=== PATIENT | male | born 1965 | race Caucasian/White ===

== ENCOUNTER → 2018-01-15 | Outpatient (CLI) | payer SELFPAY ==
[2018-01-15 13:03] LABS: BASO # 0.1 10^3/uL (0.0-0.2); BASO % 0.5 % (0.0-1.0); EOS # 0.2 10^3/uL (0.0-0.50); EOS % 1.3 % (0.0-3.0); HEMATOCRIT 52.8 % (42.0-52.0); HEMOGLOBIN 18.2 g/dl (13.5-17.5); IMMATURE GRANULOCYTE % 0.4 % (0-3.0); LYMPH # 2.8 10^3/uL (1.5-4.5); LYMPH % 20.4 % (24.0-44.0); MEAN CORPUSCULAR HEMOGLOBIN 31.1 pg (27.0-33.0); MEAN CORPUSCULAR HGB CONC 34.5 g/dl (32.0-36.5); MEAN CORPUSCULAR VOLUME 90.3 fl (80.0-96.0); MONO # 1.4 10^3/uL (0.0-0.8); MONO % 10.5 % (0.0-5.0); NEUTROPHILS # 9.1 10^3/uL (1.8-7.7); NEUTROPHILS % 66.9 % (36.0-66.0); PLATELET COUNT, AUTOMATED 289 10^3/uL (150-450); RED BLOOD COUNT 5.85 10^6/uL (4.30-6.10); RED CELL DISTRIBUTION WIDTH 13.4 % (11.5-14.5); WHITE BLOOD COUNT 13.6 10^3/uL (4.0-10.0)
[2018-01-15 13:34] LABS: ALBUMIN 4.3 GM/DL (3.2-5.2); ALBUMIN/GLOBULIN RATIO 1.34 (1.00-1.93); ALKALINE PHOSPHATASE 89 U/L (45-117); ALT/SGPT 40 U/L (12-78); AMYLASE 74 U/L (25-115); ANION GAP 6 MEQ/L (8-16); AST/SGOT 29 U/L (7-37); BILIRUBIN,TOTAL 0.6 MG/DL (0.2-1.0); BLOOD UREA NITROGEN 22 MG/DL (7-18); CALCIUM LEVEL 9.7 MG/DL (8.5-10.1); CARBON DIOXIDE LEVEL 26 MEQ/L (21-32); CHLORIDE LEVEL 110 MEQ/L (98-107); CREATININE FOR GFR 1.22 MG/DL (0.70-1.30); GLOMERULAR FILTRATION RATE > 60.0 (>56); GLUCOSE, FASTING 98 MG/DL (70-100); LIPASE 287 U/L (73-393); POTASSIUM SERUM 4.4 MEQ/L (3.5-5.1); SODIUM LEVEL 142 MEQ/L (136-145); TOTAL PROTEIN 7.5 GM/DL (6.4-8.2)
== END ==
LOC: M WUC 09:40
DX: R19.7 Diarrhea, unspecified (principal)
CPT/HCPCS: 82150

== ENCOUNTER → 2019-11-11 | Outpatient (CLI) | payer OTHER ==
--- NOTE | 2019-11-11 20:09 | REP ---
Clinical: Testicular pain. Technique: Real time lares scale and color Doppler evaluation using linear high frequency and curved array transducers. Findings: The bilateral testicles and epididymi are normal in contour, size, echogenicity and vascularity without intratesticular mass lesion, infectious/inflammatory process, or torsion. Small amount of scrotal fluid noted bilaterally is essentially nonspecific. Very subtle early right varicoceles cannot be excluded. Right testicle measures 4.0 x 2.3 x 2.5 cm. Left testicle measures 4.1 x 2.2 x 2.6 cm. Impression: 1. Very early right-sided varicoceles cannot be excluded and should be correlated with symptoms.
== END ==
LOC: M PLAIMG 13:03
PROVIDERS: ATTEND Physician Assistant
DX: M54.5 Low back pain (principal); N50.811 Right testicular pain

== ENCOUNTER → 2019-11-11 | Outpatient (CLI) | payer OTHER ==
--- NOTE | 2019-11-11 17:31 | REPPI ---
Clinical: Lower back pain . Technique: AP, lateral, bilateral oblique, and coned-down views. Findings: Alignment and lordosis is maintained. The vertebral bodies including transverse process and spinous processes are intact and there is no evidence for acute fracture / compression injury or subluxation. Advanced degenerative changes at the L5-S1 level includes endplate sclerosis, disc space obliteration, osteophytosis and hypertrophic facet changes. Chronic L5 spondylolysis cannot definitively be excluded. Moderate multilevel degenerative changes noted throughout the remainder of the lumbar spine including endplate sclerosis, osteophytosis and minimal disc space narrowing. Impression: Moderate - to - Advanced multilevel degenerative spondylosis as described above. Electronically Signed by Tulio Hill MD 11/11/2019 05:22 P
--- NOTE | 2019-11-11 17:33 | REPPI ---
Clinical: Lower back pain. Technique: AP and lateral views of the sacrum and coccyx. Findings: Advanced degenerative changes at the L5-S1 level includes endplate sclerosis, near complete disc space obliteration, osteophytosis, and hypertrophic facet changes. The sacrum and coccyx demonstrate osteopenia and age-related degenerative changes without evidence for obvious acute or healed injury. Impression: Degenerative changes of the lower lumbar spine. Age-related degenerative changes to the sacrum and coccyx. Electronically Signed by Tulio Hill MD 11/11/2019 05:24 P
== END ==
LOC: M PLAIMG 13:30
PROVIDERS: ATTEND Physician Assistant
DX: M51.36 Other intervertebral disc degeneration, lumbar region (principal); M47.816 Spondylosis without myelopathy or radiculopathy, lumbar region; N50.811 Right testicular pain; M54.5 Low back pain

== ENCOUNTER → 2019-11-24 | Outpatient (CLI) | payer OTHER | LOC: M WUC 08:15 | PROVIDERS: ATTEND Physician Assistant | DX: E78.2 Mixed hyperlipidemia (principal); F52.21 Male erectile disorder; F17.210 Nicotine dependence, cigarettes, uncomplicated ==

== ENCOUNTER → 2019-11-25 | Outpatient (REF) | payer OTHER ==
[~2019-11-25] MED LIST: ROSU5TAB5
[2019-11-25 11:19] LABS: BASO # 0.1 10^3/uL (0.0-0.2); BASO % 0.7 % (0.0-1.0); EOS # 0.1 10^3/uL (0.0-0.5); EOS % 0.7 % (0.0-3.0); LYMPH # 2.8 10^3/uL (1.5-5.0); LYMPH % 25.1 % (24.0-44.0); MEAN CORPUSCULAR HEMOGLOBIN 31.3 pg (27.0-33.0); MEAN CORPUSCULAR HGB CONC 33.3 g/dl (32.0-36.5); MEAN CORPUSCULAR VOLUME 93.9 fl (80.0-96.0); MONO % 9.2 % (0.0-5.0); NEUTROPHILS # 7.2 10^3/uL (1.5-8.5); NEUTROPHILS % 63.7 % (36.0-66.0); PLATELET COUNT, AUTOMATED 236 10^3/uL (150-450); RED BLOOD COUNT 5.75 10^6/uL (4.30-6.10); WHITE BLOOD COUNT 11.3 10^3/uL (4.0-10.0)
[2019-11-25 11:26] LABS: ALBUMIN 4.1 GM/DL (3.2-5.2); ALT/SGPT 46 U/L (12-78); BILIRUBIN,TOTAL 0.4 MG/DL (0.2-1.0); BLOOD UREA NITROGEN 19 MG/DL (7-18); CALCIUM LEVEL 9.3 MG/DL (8.5-10.1); CARBON DIOXIDE LEVEL 28 MEQ/L (21-32); CHLORIDE LEVEL 107 MEQ/L (98-107); CHOLESTEROL LEVEL 222 MG/DL (<200); CHOLESTEROL RISK RATIO 5.692 (<5); CREATININE FOR GFR 1.04 MG/DL (0.70-1.30); FREE T4 1.04 NG/DL (0.76-1.46); GLOMERULAR FILTRATION RATE > 60.0 (>56); GLUCOSE, FASTING 90 MG/DL (70-100); HDL CHOLESTEROL 39 MG/DL (>40); LDL CHOLESTEROL 147 MG/DL (<100); NON-HDL-C 183 MG/DL; POTASSIUM SERUM 4.5 MEQ/L (3.5-5.1); SODIUM LEVEL 140 MEQ/L (136-145); TOTAL PROTEIN 7.2 GM/DL (6.4-8.2); TRIGLYCERIDES LEVEL 179 MG/DL (<150)
[2019-11-27 01:11] LABS: PSA TOTAL 1.2 ng/mL (0.0-4.0)
== END ==
LOC: M LAB REF 10:15
PROVIDERS: ATTEND Physician Assistant
DX: E78.2 Mixed hyperlipidemia (principal); F52.21 Male erectile disorder; F17.210 Nicotine dependence, cigarettes, uncomplicated

== ENCOUNTER → 2020-01-01 | Outpatient (CLI) | payer OTHER ==
--- NOTE | 2020-01-01 11:26 | REPVR ---
PROCEDURE INFORMATION: Exam: MR Lumbar Spine Without Contrast. Exam date and time: 01/01/2020 7:51 AM Age: 54 years old Clinical indication: Pain; Lumbago; Additional info: Lumbosacral without myelopathy TECHNIQUE: Imaging protocol: Multiplanar magnetic resonance images of the lumbar spine without intravenous contrast. COMPARISON: CR SPINE LS W/BENDING 11/11/2019 1:42 PM FINDINGS: Vertebrae: There is straightening of the normal lumbar lordosis. There is 5 mm of grade 1 retrolisthesis of L5 with respect to S1. Normal vertebral body alignment is otherwise preserved. Vertebral body heights are within normal limits. There is severe intervertebral disc space loss at L5/S1, with endplate changes. Spinal cord: The conus medullaris terminates at L1. L1-L2: There is shallow disc bulging. There is mild facet hypertrophy. The spinal canal and neural foramina are patent. L2-L3: There is shallow disc bulging. There is mild facet and ligamentous hypertrophy. The spinal canal and neural foramina are patent. L3-L4: There is diffuse disc bulging. There is moderate facet and ligamentous hypertrophy. Fluid is noted within the facet joints. There is mild bilateral neural foraminal narrowing. L4-L5: There is diffuse disc bulging. There is moderate facet and ligamentous hypertrophy. Fluid is noted within the facet joints. There is mild bilateral lateral recess stenosis. There is mild canal stenosis, with a residual diameter of 9 mm. There is mild to moderate bilateral neural foraminal narrowing. L5-S1: There is diffuse disc bulging/uncovering related to listhesis with superimposed right subarticular protrusion/inferior extrusion. This effaces the right lateral recess, with potential compromise of the right S1 nerve root. There is moderate facet hypertrophy. Trace fluid is noted within the facet joints. There is moderate bilateral neural foraminal narrowing. Soft tissues: Unremarkable. IMPRESSION: Degenerative disc disease and spondylosis. At L5/S1, right paracentral/subarticular protrusion/extrusion effaces the right lateral recess, with potential compromise of the right S1 nerve root. Electronically signed by: Zuly Alberts On 01/01/2020 11:25:47 AM
== END ==
LOC: M RAD 06:34
PROVIDERS: ATTEND Pain Medicine Interventional Pain Medicine
DX: M54.5 Low back pain (principal)

== ENCOUNTER 2020-02-01 19:03 | Emergency (ER) | payer OTHER ==
[~2020-02-01] VITALS: Ht 185.4 cm; Wt 102.7 kg
[2020-02-01] MEDS ORDERED: ROSU5TAB5 (19:13)
[2020-02-01] MEDS ORDERED: BUPIVACAINE LIPOSOME/PF 1.3% 20ML VIAL (13.3MG/ML)(EXPAREL)(C9290 PER1MG) INFIL ONE (19:30)
[2020-02-01] MEDS ORDERED: NORCO 5/325MG TABLET (BULK FOR ED) PO ONE (20:15)
[2020-02-01] MEDS ORDERED: NORCO, ANEXSIA 5/325MG TABLET (HYDROcodone/ACETAMINOPHEN) PO ONE (20:15)
[2020-02-01 20:32] VITALS: BP 123/79
== END 2020-02-01 20:33 | disposition home or self-care (01) ==
LOC: M ED 19:03
DX: K08.89 Other specified disorders of teeth and supporting structures (principal); E78.5 Hyperlipidemia, unspecified; Z79.2 Long term (current) use of antibiotics; Z79.899 Other long term (current) drug therapy

== ENCOUNTER → 2020-08-18 | Outpatient (CLI) | payer SELFPAY | LOC: M LABSMTC 09:47 | PROVIDERS: ATTEND Pediatrics | DX: Z11.52 Encounter for screening for COVID-19 (principal) ==

== ENCOUNTER 2020-11-10 02:34 | Emergency (ER) | payer OTHER ==
[~2020-11-10] VITALS: Ht 185.4 cm; Wt 101.8 kg
[~2020-11-10 02:34] MED LIST changes: -ASPI81TA26 PO; -TRAZ-252
[2020-11-10] MEDS ORDERED: TRAZ-252 (02:52)
[2020-11-10 02:58] LABS: BASO # 0.1 10^3/uL (0.0-0.2); BASO % 0.5 % (0.0-1.0); EOS # 0.2 10^3/uL (0.0-0.5); EOS % 1.6 % (0.0-3.0); HEMATOCRIT 51.5 % (42.0-52.0); HEMOGLOBIN 17.3 g/dl (13.5-17.5); LYMPH # 3.7 10^3/uL (1.5-5.0); LYMPH % 34.6 % (24.0-44.0); MEAN CORPUSCULAR HEMOGLOBIN 31.2 pg (27.0-33.0); MEAN CORPUSCULAR HGB CONC 33.6 g/dl (32.0-36.5); MEAN CORPUSCULAR VOLUME 92.8 fl (80.0-96.0); MONO # 1.1 10^3/uL (0.0-0.8); MONO % 10.1 % (2.0-8.0); NEUTROPHILS # 5.7 10^3/uL (1.5-8.5); NEUTROPHILS % 52.8 % (36.0-66.0); PLATELET COUNT, AUTOMATED 206 10^3/uL (150-450); RED BLOOD COUNT 5.55 10^6/uL (4.30-6.10); WHITE BLOOD COUNT 10.7 10^3/uL (4.0-10.0)
[2020-11-10 03:29] LABS: BLOOD UREA NITROGEN 20 MG/DL (7-18); CALCIUM LEVEL 8.9 MG/DL (8.5-10.1); CARBON DIOXIDE LEVEL 29 MEQ/L (21-32); CHLORIDE LEVEL 108 MEQ/L (98-107); CK-MB VALUE MASS 1.9 NG/ML (<3.6); CPK CREATINE PHOSPHOKINASE 149 U/L (39-308); CREATININE FOR GFR 1.35 MG/DL (0.70-1.30); GLUCOSE, FASTING 108 MG/DL (70-100); MB/CK RELATIVE INDEX 1.28 (< OR =4); POTASSIUM SERUM 3.9 MEQ/L (3.5-5.1); SODIUM LEVEL 143 MEQ/L (136-145); TROPONIN I < 0.02 NG/ML (< 0.10)
[2020-11-10 04:11] LABS: ALT/SGPT 69 U/L (12-78); BILIRUBIN,DIRECT 0.1 MG/DL (0.0-0.2); BILIRUBIN,TOTAL 0.5 MG/DL (0.2-1.0); LIPASE 123 U/L (73-393); TOTAL PROTEIN 6.9 GM/DL (6.4-8.2)
[2020-11-10] MEDS ORDERED: ISOVUE-370 76% 100ML VIAL As Ordered ONE (04:33)
--- NOTE | 2020-11-10 05:16 | REPVR ---
PROCEDURE INFORMATION: Exam: XR Chest Exam date and time: 11/10/2020 3:07 AM Age: 55 years old Clinical indication: Pain; Other: Unspecified; Additional info: Chest pain TECHNIQUE: Imaging protocol: XR of the chest. Views: 1 view. COMPARISON: No relevant prior studies available. FINDINGS: Lungs: Unremarkable. No consolidation. Pleural spaces: Unremarkable. No pleural effusion. No pneumothorax. Heart/Mediastinum: Unremarkable. No cardiomegaly. Bones/joints: Unremarkable. IMPRESSION: No acute findings. Electronically signed by: Mat Del Rosario On 11/10/2020 05:16:17 AM
--- NOTE | 2020-11-10 05:24 | REPVR ---
PROCEDURE INFORMATION: Exam: CTA Chest With Contrast Exam date and time: 11/10/2020 4:48 AM Age: 55 years old Clinical indication: Pain; Chest pressure; Additional info: Chest pain TECHNIQUE: Imaging protocol: Computed tomographic angiography of the chest with contrast. 3D rendering (Not supervised by radiologist): MIP and/or 3D reconstructed images were created by the technologist. Radiation optimization: All CT scans at this facility use at least one of these dose optimization techniques: automated exposure control; mA and/or kV adjustment per patient size (includes targeted exams where dose is matched to clinical indication); or iterative reconstruction. Contrast material: ISOVUE 370; Contrast volume: 100 ml; Contrast route: INTRAVENOUS (IV); COMPARISON: CR PORTABLE CHEST X-RAY 11/10/2020 3:00 AM FINDINGS: Pulmonary arteries: Normal. No pulmonary emboli. Aorta: Unremarkable. No aortic aneurysm. No aortic dissection. Lungs: There is 3 mm right middle lobe anterior pleural base nodule on axial image 115. There is mild bilateral posterior dependent atelectatic lung changes. Mild atelectatic changes seen in the lingula. There is left upper lobe linear atelectasis. . Pleural spaces: There is no pleural effusion. There is no pneumothorax Heart: Unremarkable. No cardiomegaly. No pericardial effusion. Lymph nodes: Unremarkable. No enlarged lymph nodes. Bones/joints: Unremarkable. No acute fracture. Soft tissues: Unremarkable. IMPRESSION: 1. No CT evidence of pulmonary embolism or right heart strain. 2. 3 mm right middle lobe lung nodule.For patients at low risk (minimal or absent history of smoking and of other known risk factors), no routine follow-up is indicated. For patients at high risk (history of smoking or of other known risk factors), consider optional CT Chest at 12 months. (Reference: Cyndee) REFERENCES: Cyndee H, et al. Guidelines for Management of Incidental Pulmonary Nodules Detected on CT Images: From the Fleischner Society 2017. Radiology. 2017;284(1):228-243. Electronically signed by: Mat Del Rosario On 11/10/2020 05:24:25 AM
--- NOTE | 2020-11-10 05:32 | REPVR ---
PROCEDURE INFORMATION: Exam: CT Abdomen And Pelvis With Contrast Exam date and time: 11/10/2020 4:48 AM Age: 55 years old Clinical indication: Abdominal pain; Epigastric; Additional info: Epigastric pain TECHNIQUE: Imaging protocol: Computed tomography of the abdomen and pelvis with contrast. Radiation optimization: All CT scans at this facility use at least one of these dose optimization techniques: automated exposure control; mA and/or kV adjustment per patient size (includes targeted exams where dose is matched to clinical indication); or iterative reconstruction. Contrast material: ISOVUE 370; Contrast volume: 100 ml; Contrast route: INTRAVENOUS (IV); COMPARISON: SACRUM AND COCCYX 11/11/2019 1:42 PM FINDINGS: Liver: Normal. No mass. Gallbladder and bile ducts: Normal. No calcified stones. No ductal dilation. Pancreas: Normal. No ductal dilation. Spleen: Evaluation of the spleen is limited due to heterogeneous phase of enhancement. No splenomegaly. Adrenal glands: Normal. No mass. Kidneys and ureters: There is a 3.5 x 3.4 cm exophytic right upper renal pole cyst measuring slightly higher than simple fluid. There is also an exophytic right lower renal pole cyst measuring 1.6 cm on axial image 84 measuring higher than simple fluid. Stomach and bowel: There is apparent thickening proximal small bowel loops. Appendix: No evidence of appendicitis. Intraperitoneal space: Unremarkable. No free air. No significant fluid collection. Vasculature: There is mild aortic and iliac mural calcifications and atherosclerotic disease. Lymph nodes: Unremarkable. No enlarged lymph nodes. Urinary bladder: Unremarkable as visualized. Reproductive: The prostate gland is enlarged and heterogeneous measuring 5.5 x 4.2 centimetres. Bones/joints: There is significant L5-S1 disc degenerative changes with facet arthrosis. There is anterior L1-L2 disc osteophyte complex formation. Soft tissues: Patient is status post bilateral inguinal hernia repair. IMPRESSION: 1. Suggestion of proximal small bowel wall thickening which could be attributed to under distension however underlying enteritis cannot be excluded. Correlate clinically. 2. Enlarged prostate gland. Correlate with clinical history, physical exam and PSA level. 3. 3.5 x 3.4 cm right upper renal pole and 1.6 cm right lower renal pole exophytic cysts measuring higher than simple fluid. Further characterization with MRI with contrast is suggested on a nonemergent basis. COMMENTS: Consistent with the [place] [employer]'s Incidental Findings Committee white paper (J Am Brady Radiol 2018): Any incidental renal lesion less than 1 cm or classified as too small to characterize, or any incidental cystic renal lesion characterized as simple-appearing, is likely benign. No follow-up imaging is recommended for these lesions per consensus recommendations based on imaging criteria. Electronically signed by: Mat Del Rosario On 11/10/2020 05:32:04 AM
[2020-11-10 09:35] LABS: CK-MB VALUE MASS < 1.0 NG/ML (<3.6); CPK CREATINE PHOSPHOKINASE 105 U/L (39-308); MB/CK RELATIVE INDEX 0.95 (< OR =4); TROPONIN I < 0.02 NG/ML (< 0.10)
[2020-11-10] MEDS ORDERED: ASPI81TA26 PO (10:44)
--- NOTE | 2020-11-10 10:45 | ED PDOC ---
Post-Departure Follow-Up dr forrester faxed formal report of cta chest for fu Shirin Aguilar MD Nov 10, 2020 10:45
[2020-11-10 10:51] VITALS: BP 148/86
[2020-11-10 16:52] LABS: CHOLESTEROL LEVEL 192 MG/DL (<200); CHOLESTEROL RISK RATIO 4.923 (<5); HDL CHOLESTEROL 39 MG/DL (>40); LDL CHOLESTEROL 115 MG/DL (<100); NON-HDL-C 153 MG/DL; TRIGLYCERIDES LEVEL 192 MG/DL (<150)
--- NOTE | 2020-11-10 20:49 | ECGEPIP ---
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
--- NOTE | 2020-11-10 20:50 | ECGEPIP ---
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
== END 2020-11-10 11:04 | disposition home or self-care (01) ==
LOC: M ED 02:34
DX: R91.1 Solitary pulmonary nodule (principal); N28.1 Cyst of kidney, acquired; R07.9 Chest pain, unspecified; R00.1 Bradycardia, unspecified; E78.5 Hyperlipidemia, unspecified; F17.200 Nicotine dependence, unspecified, uncomplicated; N40.0 Benign prostatic hyperplasia without lower urinary tract symptoms; Z79.899 Other long term (current) drug therapy
CPT/HCPCS: 71045; 71275; 74177; 80048; 80061; 80076; 82550; 82553; 83690; 84484; 85025; 93005; 93041; 94760; 99285; Q9967

== ENCOUNTER → 2020-11-10 | Outpatient (REF) | payer OTHER ==
[~2020-11-10] MED LIST changes: +ASPI81TA26 PO; +TRAZ-252
== END ==
LOC: M LAB REF 16:28
PROVIDERS: ATTEND Physician Assistant
DX: E78.2 Mixed hyperlipidemia (principal); R07.9 Chest pain, unspecified; Z12.5 Encounter for screening for malignant neoplasm of prostate

== ENCOUNTER → 2021-04-28 | Outpatient (CLI) | payer BC ==
[~2021-04-28] MED LIST changes: +ASPI81TA26 PO; +TRAZ-252
[2021-04-28 17:45] LABS: BLOOD UREA NITROGEN 19 MG/DL (7-18); CREATININE FOR GFR 1.28 MG/DL (0.70-1.30); GLOMERULAR FILTRATION RATE > 60.0 (>56)
== END ==
LOC: M LAB 16:43
PROVIDERS: ATTEND Physician Assistant Medical
DX: H90.71 Mixed conductive and sensorineural hearing loss, unilateral, right ear, with unrestricted hearing on the contralateral side (principal)

== ENCOUNTER → 2021-04-29 | Outpatient (CLI) | payer BC ==
--- NOTE | 2021-04-29 13:27 | REPVR ---
PROCEDURE INFORMATION: Exam: MR Head Without and With Contrast; Internal Auditory Canals Exam date and time: 04/29/2021 9:00 AM Age: 55 years old Clinical indication: Other: Acute hearing loss; Additional info: Mixed hearing loss RT ear TECHNIQUE: Imaging protocol: MR of the head without and with intravenous contrast. Exam focused on the internal auditory canals. Contrast material: PROHANCE; Contrast volume: 20 ml; Contrast route: INTRAVENOUS (IV); COMPARISON: No relevant prior studies available. FINDINGS: Brain: See "Internal auditory canals" finding. Ventricles: No ventriculomegaly. Mastoid air cells: Unremarkable. No effusions. Internal auditory canals: High-resolution imaging through the internal auditory canals (IACs) demonstrates normal appearance of the seventh and eighth cranial nerve complexes. The cerebellopontine angle cisterns are unremarkable. There is no abnormal enhancement. Bones/joints: Unremarkable. IMPRESSION: High-resolution imaging through the internal auditory canals (IACs) demonstrates normal appearance of the seventh and eighth cranial nerve complexes. The cerebellopontine angle cisterns are unremarkable. There is no abnormal enhancement. Electronically signed by: Stephen Mendosa On 04/29/2021 13:26:47 PM
== END ==
LOC: M PLARAD 08:04
PROVIDERS: ATTEND Physician Assistant Medical
DX: H90.71 Mixed conductive and sensorineural hearing loss, unilateral, right ear, with unrestricted hearing on the contralateral side (principal)

== ENCOUNTER → 2021-11-15 | Outpatient (CLI) | payer BC | LOC: M WUC 08:03 | PROVIDERS: ATTEND Nurse Practitioner Adult Health | DX: M47.26 Other spondylosis with radiculopathy, lumbar region (principal) ==

== ENCOUNTER → 2021-12-30 | Outpatient (CLI) | payer BC | LOC: M RAD 08:03 | PROVIDERS: ATTEND Nurse Practitioner Adult Health | DX: R91.1 Solitary pulmonary nodule (principal); R16.1 Splenomegaly, not elsewhere classified; I25.10 Atherosclerotic heart disease of native coronary artery without angina pectoris; I70.0 Atherosclerosis of aorta ==

== ENCOUNTER → 2022-04-13 | Outpatient (REF) | payer BC ==
[2022-04-13 12:35] LABS: BASO # 0.1 10^3/uL (0.0-0.2); BASO % 1.1 % (0.0-1.0); EOS # 0.1 10^3/uL (0.0-0.5); EOS % 1.7 % (0.0-3.0); HEMATOCRIT 50.5 % (42.0-52.0); HEMOGLOBIN 16.2 g/dl (13.5-17.5); LYMPH # 2.6 10^3/uL (1.5-5.0); MEAN CORPUSCULAR HEMOGLOBIN 30.9 pg (27.0-33.0); MEAN CORPUSCULAR HGB CONC 32.1 g/dl (32.0-36.5); MEAN CORPUSCULAR VOLUME 96.4 fl (80.0-96.0); MONO # 0.8 10^3/uL (0.0-0.8); MONO % 9.8 % (2.0-8.0); NEUTROPHILS # 4.7 10^3/uL (1.5-8.5); NEUTROPHILS % 56.2 % (36.0-66.0); PLATELET COUNT, AUTOMATED 224 10^3/uL (150-450); RED BLOOD COUNT 5.24 10^6/uL (4.30-6.10); WHITE BLOOD COUNT 8.4 10^3/uL (4.0-10.0)
[2022-04-13 13:46] LABS: ALT/SGPT 49 U/L (12-78); BILIRUBIN,TOTAL 0.5 MG/DL (0.2-1.0); BLOOD UREA NITROGEN 19 MG/DL (7-18); CALCIUM LEVEL 9.3 MG/DL (8.5-10.1); CARBON DIOXIDE LEVEL 30 MEQ/L (21-32); CHLORIDE LEVEL 107 MEQ/L (98-107); CHOLESTEROL LEVEL 158 MG/DL (<200); CHOLESTEROL RISK RATIO 3.434 (<5); CREATININE FOR GFR 1.05 MG/DL (0.70-1.30); GLOMERULAR FILTRATION RATE > 60.0 (>56); GLUCOSE, FASTING 71 MG/DL (70-100); HDL CHOLESTEROL 46 MG/DL (>40); LDL CHOLESTEROL 96 MG/DL (<100); NON-HDL-C 112 MG/DL; POTASSIUM SERUM 4.7 MEQ/L (3.5-5.1); SODIUM LEVEL 142 MEQ/L (136-145); TOTAL PROTEIN 6.5 GM/DL (6.4-8.2); TRIGLYCERIDES LEVEL 82 MG/DL (<150)
== END ==
LOC: M LAB REF 11:52
PROVIDERS: ATTEND Nurse Practitioner Adult Health
DX: G47.00 Insomnia, unspecified (principal); E78.2 Mixed hyperlipidemia

== ENCOUNTER → 2022-05-02 | Outpatient (CLI) | payer BC | LOC: M CARPUL 13:25 | PROVIDERS: ATTEND Nurse Practitioner Adult Health | DX: I49.9 Cardiac arrhythmia, unspecified (principal) ==

== ENCOUNTER → 2022-09-22 | Outpatient (CLI) | payer BC | LOC: M PLARAD 08:27 | PROVIDERS: ATTEND Nurse Practitioner Adult Health | DX: M25.561 Pain in right knee (principal) ==

== ENCOUNTER → 2023-05-02 | Outpatient (CLI) | payer BC | LOC: M PLAIMG 15:39 | PROVIDERS: ATTEND Nurse Practitioner Adult Health | DX: M54.50 Low back pain, unspecified (principal); M47.896 Other spondylosis, lumbar region; M99.63 Osseous and subluxation stenosis of intervertebral foramina of lumbar region ==

== ENCOUNTER → 2023-05-30 | Outpatient (REF) | LOC: M PLAIMG 10:22 | PROVIDERS: ATTEND Internal Medicine | DX: R52 Pain, unspecified (principal) ==

== ENCOUNTER → 2024-04-29 | Outpatient (REF) | payer BC ==
[~2024-04-29] MED LIST changes: +ROSU5TAB49; -ROSU5TAB5
[2024-04-29 14:19] LABS: BASO # 0.1 10^3/uL (0.0-0.2); BASO % 0.8 % (0.0-1.0); EOS # 0.1 10^3/uL (0.0-0.5); EOS % 1.4 % (0.0-3.0); HEMATOCRIT 52.9 % (42.0-52.0); HEMOGLOBIN 17.3 g/dl (13.5-17.5); LYMPH # 3.1 10^3/uL (1.5-5.0); LYMPH % 33.8 % (24.0-44.0); MEAN CORPUSCULAR HGB CONC 32.7 g/dl (32.0-36.5); MEAN CORPUSCULAR VOLUME 94.8 fl (80.0-96.0); MONO # 0.8 10^3/uL (0.0-0.8); MONO % 8.5 % (2.0-8.0); NEUTROPHILS % 55.1 % (36.0-66.0); PLATELET COUNT, AUTOMATED 253 10^3/uL (150-450); RED BLOOD COUNT 5.58 10^6/uL (4.30-6.10); WHITE BLOOD COUNT 9.1 10^3/uL (4.0-10.0)
[2024-04-29 14:44] LABS: ALBUMIN 4.1 G/DL (3.2-5.2); ALKALINE PHOSPHATASE 91 U/L (40-129); ALT/SGPT 44 U/L (7.0-40); AST/SGOT 24 U/L (<34); BILIRUBIN,TOTAL 0.5 MG/DL (0.3-1.2); BLOOD UREA NITROGEN 20 MG/DL (9-23); CALCIUM LEVEL 10.1 MG/DL (8.3-10.6); CARBON DIOXIDE LEVEL 30 MMOL/L (20-31); CHLORIDE LEVEL 106 MMOL/L (98-107); CHOLESTEROL LEVEL 219 MG/DL (<200); CHOLESTEROL RISK RATIO 5.38 (<5); CREATININE FOR GFR 1.01 MG/DL (0.70-1.30); GLOMERULAR FILTRATION RATE > 60.0 (>49); GLUCOSE, FASTING 77 MG/DL (74-106); HDL CHOLESTEROL 40.7 MG/DL (>40); LDL CHOLESTEROL 138.5 MG/DL (<100); NON-HDL-C 178.3 MG/DL; POTASSIUM SERUM 4.6 MMOL/L (3.5-5.1); SODIUM LEVEL 141 MMOL/L (136-145); TOTAL PROTEIN 7.4 G/DL (5.7-8.2); TRIGLYCERIDES LEVEL 199 MG/DL (<150)
== END ==
LOC: M LAB REF 12:41
PROVIDERS: ATTEND Nurse Practitioner Adult Health
DX: E78.2 Mixed hyperlipidemia (principal)

== ENCOUNTER → 2024-06-06 | Outpatient (CLI) | payer BC, OTHER | LOC: M RAD 08:13 | PROVIDERS: ATTEND Nurse Practitioner Adult Health | DX: F17.210 Nicotine dependence, cigarettes, uncomplicated (principal) ==

== ENCOUNTER 2024-08-04 08:01 | Day surgery (SDC) | payer OTHER ==
[~2024-08-04] VITALS: Ht 185.4 cm; Wt 110.1 kg
[~2024-08-04 08:01] MED LIST changes: +D3 S1CAP3 PO; +DULO1CAP5 PO; +HYDR-3716 PO; +MAGN400C PO; +ROSU10TA61 PO; +[UNRECOGNIZED DRUG - CODE] PO
[2024-08-04] MEDS ORDERED: propofoL 500 MG/50 ML VIAL As Ordered ONE (08:53)
[2024-08-04] MEDS ORDERED: LIDOCAINE 2% 100MG/5ML SDV (FOR ANES.) As Ordered ONE (08:53)
[2024-08-04 09:10] VITALS: TEMP 97.9
[2024-08-04 09:35] VITALS: BP 106/55; O2SAT 96
== END 2024-08-04 09:40 | disposition home or self-care (01) ==
LOC: M OPP 08:01
PROVIDERS: ATTEND Internal Medicine Gastroenterology
DX: Z12.11 Encounter for screening for malignant neoplasm of colon (principal); R19.5 Other fecal abnormalities; K64.0 First degree hemorrhoids; Z79.82 Long term (current) use of aspirin; Z79.891 Long term (current) use of opiate analgesic; Z79.899 Other long term (current) drug therapy; F17.210 Nicotine dependence, cigarettes, uncomplicated

== ENCOUNTER → 2025-06-08 | Outpatient (CLI) | payer OTHER ==
[~2025-06-08] MED LIST changes: -ROSU10TA61 PO; +ROSU10TA90 PO
== END ==
LOC: M RAD 10:29
PROVIDERS: ATTEND Nurse Practitioner Adult Health
DX: Z87.891 Personal history of nicotine dependence (principal)